=== PATIENT | female | born 1960 | race Caucasian/White ===

== ENCOUNTER 2024-08-19 10:27 | Outpatient (OUT) | payer OTHER, SELFPAY ==
--- NOTE | 2024-08-19 10:50 | XR_ITS ---
The [address] [address] Patient Name: JESSICA DE JESUS MRN: [id number] date: 1960 Sex: F Assigned Patient Location: [facility] Current Patient Location: Accession/Order Number: [id number] Exam Date: 08/19/2024 10:58 Report Date: 08/20/2024 15:02 At the request of: IDANIA JACKSON Procedure: XR lumbar spine 2-3V EXAMINATION: XR lumbar spine 2-3V HISTORY: Degenerative Disc Disease COMPARISON: No relevant comparison available. FINDINGS: BONES: Normal alignment with no acute fracture or spondylolisthesis. Mild to moderate spondylosis. Moderate to severe facet osteoarthropathy most significant L4-S1 DISC SPACES: Normal. No significant disc height narrowing, subluxation, or endplate abnormality. PARASPINOUS: Negative. No paraspinous abnormality is seen. OTHER: Negative. XR/XR lumbar spine 2-3V IMPRESSION: Mild to severe degenerative changes Electronically authenticated by: AGATA AVILA Date: 08/20/2024 15:02
== END 2024-08-19 10:28 | disposition home or self-care (01) ==
LOC: RAD 10:39
PROVIDERS: Visit Provider Chiropractor
DX: M51.369 Other intervertebral disc degeneration, lumbar region without mention of lumbar back pain or lower extremity pain (principal)
CPT/HCPCS: 72100